=== PATIENT | female | born 1940 | race Caucasian/White ===

== ENCOUNTER 2016-10-05 06:13 | Inpatient (IN) | payer MEDICARE, OTHER ==
[2016-10-05] VITALS (15 sets, daily range): BP systolic 99–148; BP diastolic 62–73; PULSE 60–75; RESP 16–20; TEMP 96.2–98; O2SAT 87–99
[~2016-10-05] VITALS: Ht 157.5 cm; Wt 44.1 kg
[~2016-10-05 06:13] MED LIST: ALPR.25 PO; ATEN-100 PO; PACE200T4 PO; ZOFR4TAB3 SL
[2016-10-05] MEDS ORDERED: AMIO200T PO (06:18)
[2016-10-05] MEDS ORDERED: HEPARIN-NS/PF INJ 500 ML ONE (06:18)
[2016-10-05] MEDS ORDERED: HEPARIN SODIUM - IV 10,000 UNITS/10 ML VIAL ONE ×2 (06:20→06:46)
[2016-10-05] MEDS ORDERED: SODIUM CHLOR 0.9% 1000 ML INJ 1,000 ML IV ONE (06:21)
[2016-10-05] MEDS ORDERED: ASPIRIN 81 MG CHEW TAB PO STA (06:21)
[2016-10-05] MEDS ORDERED: HEPARIN SODIUM - IV 10,000 UNITS/10 ML VIAL IV STA (06:21)
[2016-10-05] MEDS ORDERED: NITROGLYCERIN 0.4 MG SL 25 TABS/BTL SL STA (06:21)
[2016-10-05] MEDS ORDERED: SODIUM CHLORIDE 0.9% FLUSH 10 ML FLUSH IVF PRN (06:30)
[2016-10-05] MEDS ORDERED: NITROGLYCERIN-DEXTROSE INJ 250 ML IV SCH (06:30)
[2016-10-05 06:34] LABS: AUTOMATED NEUTROPHIL # 4.4 TH/MM3 (1.8-7.7); BASOPHIL # 0.1 TH/MM3 (0-0.2); BASOPHIL % 1.1 % (0.0-2.0); EOSINOPHIL # 0.4 TH/MM3 (0-0.4); EOSINOPHIL % 6.3 % (0.0-4.0); HEMATOCRIT 32.6 % (35.0-46.0); HEMO FLAGS DIFF FINAL; LYMPH % 18.5 % (9.0-44.0); LYMPHOCYTE # 1.2 TH/MM3 (1.0-4.8); MEAN CELL VOLUME 85.5 FL (80.0-100.0); MEAN CORPUSCULAR HEMOGLOBIN 27.6 PG (27.0-34.0); MEAN CORPUSCULAR HGB CONC 32.3 % (32.0-36.0); MONO % 9.8 % (0.0-8.0); NEUT % 64.3 % (16.0-70.0); PLATELET COUNT 282 TH/MM3 (150-450); RED BLOOD COUNT 3.81 MIL/MM3 (4.00-5.30); RED CELL DISTRIBUTION WIDTH 14.4 % (11.6-17.2); WHITE BLOOD COUNT 6.8 TH/MM3 (4.0-11.0)
[2016-10-05 06:36] LABS: I-STAT POTASSIUM 4.6 MMOL/L (3.5-4.9)
[2016-10-05 06:46] LABS: APTT (PATIENT) 22.3 SEC (24.3-30.1); PROTHROMBIN TIME - PATIENT 11.2 SEC (9.8-11.6)
[2016-10-05] MEDS ORDERED: NITROGLYCERIN INJ 5 ML ONE (06:46)
[2016-10-05] MEDS ORDERED: MIDAZOLAM HCL 2 MG/2 ML VIAL ONE (06:46)
[2016-10-05 06:48] LABS: MAGNESIUM 2.1 MG/DL (1.5-2.5)
--- NOTE | 2016-10-05 07:15 | PD ---
HPI Chief Complaint: STEMI Alert Time Seen by Provider: 06:21 Travel History International Travel<30 days: No Contact w/Intl Traveler<30days: No Traveled to known affect area: No History of Present Illness HPI The patient is a 76 year old female who presents to the [facility] emergency department with a history of chest pressure that began approximately one hour prior to arrival. The patient reports that she was up and eating breakfast drinking her coffee when she had a sensation of indigestion and chest pressure. The patient reports the chest pressure continued. She reports having generalized weakness, however no shortness of breath, diaphoresis, nausea or vomiting. The patient denies having any prior history of coronary artery disease or myocardial infarction. She reports that she has a long- standing history of atrial fibrillation and hyperlipidemia. She is on amiodarone. She reports that she took her amiodarone and atorvastatin earlier today. Upon ambulance services arrival the patient was noted to have a 5 out of 10 chest pain reported. The patient was placed on a monitor, ECG was done that showed an ST segment elevation DE. The patient was called as a STEMI alert prior to arrival. The patient was given sublingual nitroglycerin 3, aspirin 162 mg by mouth 1. The patient on arrival reports that her chest pain is improved to a 4 out of 10 in severity. The patient denies any recent fevers, cough, congestion, neck pain,abdominal pain, vomiting, diarrhea, urinary symptoms, or neurologic symptoms. PFSH Past Medical History Narrative Medical The patient's past medical history is significant for hyperlipidemia, hypertension, atrial fibrillation Immunizations Current: Yes Tetanus Vaccination: Unknown Influenza Vaccination: No Menopausal: Yes Past Surgical History Narrative Surgical The patient's past surgical history is significant for lobectomy related to a nodule that was benign. Social History Alcohol Use: No Tobacco Use: No Substance Use: No Allergies-Medications (Allergen,Severity, Reaction): Coded Allergies: Codeine (Verified Allergy, Mild, Itching, 10/05/16) Penicillin (Verified Allergy, Mild, Itching, 10/05/16) Reported Meds & Prescriptions Reported Meds & Active Scripts Active Reported Amiodarone (Amiodarone HCl) 200 Mg Tab 200 Mg PO DAILY Review of Systems Except as stated in HPI: all other systems reviewed are Neg General / Constitutional: No: Fever Eyes: No: Visual changes HENT: No: Headaches Cardiovascular: Positive: Chest Pain or Discomfort, No: Dyspnea on exertion Respiratory: No: Shortness of Breath Gastrointestinal: No: Abdominal Pain Genitourinary: No: Dysuria Musculoskeletal: No: Pain Skin: No Rash Neurologic: No: Weakness Psychiatric: No: Depression Endocrine: No: Polydipsia Hematologic/Lymphatic: No: Easy Bruising Physical Exam Narrative General: The patient is a well-developed well-nourished female in no acute distress. Head and Neck exam: Head is normocephalic atraumatic. Eyes: EOMI, pupils are equal round and reactive to light. Nose: Midline septum with pink mucous membranes Mouth: Dentition unremarkable. Moist mucus membranes. Posterior oropharynx is not erythematous. No tonsillar hypertrophy. Uvula midline. Airway patent. Neck: No palpable lymphadenopathy. No nuchal rigidity. No thyromegaly. Cardiovascular: Regular rate and rhythm without murmurs, gallops, or rubs. No pulse deficit to the extremities. Lungs: Clear to auscultation bilaterally. No wheezes, rhonchi, or rales. Abdomen: Soft, without tenderness to palpation in all 4 quadrants of the abdomen. No guarding, rebound, or rigidity. Normal bowel sounds are audible. Extremities: No clubbing, cyanosis, or edema. 2+ pulses in all 4 extremities. No calf tenderness on palpation. Back: No spinous process tenderness to palpation. No costovertebral angle tenderness to palpation. Neurologic Exam: Grossly nonfocal. Skin Exam: No rash noted. Intact skin that is warm and dry. Data Data Last Documented VS Vital Signs Date Time Temp Pulse Resp B/P Pulse Ox O2 Delivery O2 Flow Rate FiO2 10/05/16 06:28 16 10/05/16 06:28 98 Nasal Cannula 2 10/05/16 06:20 61 125/66 10/05/16 06:19 97.4 Orders Heparin-Ns/Pf Inj (Heparin-Ns/Pf Inj) (10/05/16 06:18) Heparin Inj (Heparin Inj) (10/05/16 06:20) Troponin I (10/05/16 06:21) Ckmb (Isoenzyme) Profile (10/05/16 06:21) Complete Blood Count With Diff (10/05/16 06:21) I-Stat Profile (10/05/16 06:21) I-Stat Creatinine (10/05/16 06:21) Calcium (10/05/16 06:21) Magnesium (Mg) (10/05/16 06:21) Prothrombin Time / Inr (Pt) (10/05/16 06:21) Act Partial Throm Time (Ptt) (10/05/16 06:21) B-Type Natriuretic Peptide (10/05/16 06:21) Chest, Single Ap (10/05/16 06:21) Electrocardiogram (10/05/16 06:21) Oxygen Administration (10/05/16 06:21) Iv Access Insert/Monitor (10/05/16 06:21) Oximetry (10/05/16 06:21) Sodium Chlor 0.9% 1000 Ml Inj (Ns 1000 M (10/05/16 06:21) Sodium Chloride 0.9% Flush (Ns Flush) (10/05/16 06:30) Nitroglycerin Sl (Nitrostat Sl) (10/05/16 06:21) Nitroglycerin-Dextrose Inj (Nitroglyceri (10/05/16 06:30) Heparin Inj (Heparin Inj) (10/05/16 06:21) Aspirin Chew (Aspirin Chew) (10/05/16 06:21) Midazolam Inj (Versed Inj) (10/05/16 06:46) Heparin Inj (Heparin Inj) (10/05/16 06:46) Nitroglycerin Inj (Nitroglycerin Inj) (10/05/16 06:46) Labs Laboratory Tests Test 10/05/16 06:20 White Blood Count 6.8 TH/MM3 Red Blood Count 3.81 MIL/MM3 Hemoglobin 10.5 GM/DL Bedside Hemoglobin 11.2 G/DL Hematocrit 32.6 % Bedside Hematocrit 33.0 % Mean Corpuscular Volume 85.5 FL Mean Corpuscular Hemoglobin 27.6 PG Mean Corpuscular Hemoglobin 32.3 % Concent Red Cell Distribution Width 14.4 % Platelet Count 282 TH/MM3 Mean Platelet Volume 8.0 FL Neutrophils (%) (Auto) 64.3 % Lymphocytes (%) (Auto) 18.5 % Monocytes (%) (Auto) 9.8 % Eosinophils (%) (Auto) 6.3 % Basophils (%) (Auto) 1.1 % Neutrophils # (Auto) 4.4 TH/MM3 Lymphocytes # (Auto) 1.2 TH/MM3 Monocytes # (Auto) 0.7 TH/MM3 Eosinophils # (Auto) 0.4 TH/MM3 Basophils # (Auto) 0.1 TH/MM3 CBC Comment DIFF FINAL Differential Comment Prothrombin Time 11.2 SEC Prothromb Time International 1.0 RATIO Ratio Activated Partial 22.3 SEC Thromboplast Time Bedside Sodium 140 MMOL/L Bedside Potassium 4.6 MMOL/L Bedside Chloride 104 MMOL/L Bedside Blood Urea Nitrogen 13 MG/DL Bedside Creatinine 0.8 MG/DL Bedside Glucose 129 MG/DL Calcium Level 8.1 MG/DL Magnesium Level 2.1 MG/DL Total Creatine Kinase 92 U/L Troponin I 0.31 NG/ML B-Type Natriuretic Peptide 308 PG/ML MDM Medical Decision Making Medical Screen Exam Complete: Yes Emergency Medical Condition: Yes Medical Record Reviewed: Yes Differential Diagnosis Acute myocardial infarction, versus pericarditis Narrative Course During the course of the patients emergency department visit, the patients history, examination, and differential diagnosis were reviewed with the patient. The patient had IV access obtained and blood work sent for analysis. An i-STAT with creatinine was ordered. Chest x-ray was ordered. The media specialist on-call for STEMI alert was called. Spoke to Dr. Chi regarding this patient's case. He did agree to take the patient to the cardiac catheterization lab. The patient was provided an additional aspirin 162 mg by mouth. The patient was given heparin 3000 units 1. The patients laboratory studies were reviewed and remarkable for a white count of 6.8, hemoglobin 10.5, platelets 282 with a normal differential. BMP is remarkable for a glucose of 129, calcium 8.1, troponin I 0.31, CPK 92, BNP is 308, PT 11.2, PTT 22.3. Personally transported patient to the cardiac catheterization lab and transported with the nursing staff. I arrived at 6:33 AM and the media specialist arrived to [facility] at approximately 6:58 AM. Care was transferred over to Dr. Chi after discussing the patient further with him. The patients results were discussed with the patient, including the plan of care. I explained that further testing and/ or monitoring is indicated based on the patients history, examination, and/ or laboratory findings. Therefore, I recommended admission for additional evaluation. The patient expressed understanding and was agreeable with this plan. The patient was admitted to the hospital in guarded condition and sent to a bed under the care of the media specialist. Critical Care Narrative Aggregate critical care time was 45 minutes. Time to perform other separately billable procedures was not included in the critical care time. My time did not include minutes spent treating any other patients simultaneously or on activities that did not directly contribute to the patient's treatment. The services I provided to this patient were to treat and/or prevent clinically significant deterioration that could result in: Cardiovascular collapse, cardiac arrhythmia, respiratory failure I provided critical care services requiring my management, as noted below: Chart data review, documentation time, medication orders and management, vital sign assessments/reviewing monitor data, ordering and reviewing lab tests, ordering and interpreting/reviewing x-rays and diagnostic studies, care of the patient and discussion of the patient with the admitting physicians. Diagnosis Primary Impression: STEMI (ST elevation myocardial infarction) Qualified Code: I21.3 - ST elevation myocardial infarction (STEMI), unspecified artery Admitting Information Admitting Physician Requests: Diamond Castillo MD Oct 05, 2016 07:15
[2016-10-05] MEDS ORDERED: NITROGLYCERIN 400 MCG/SPRAY 4.9 GM BOTTLE SL ONE (07:19)
[2016-10-05] MEDS ORDERED: CLOPIDOGREL 300 MG TAB ONE (07:20)
[2016-10-05] MEDS ORDERED: MORPHINE SULFATE 8 MG/ML INJ ONE (07:23)
[2016-10-05] MEDS ORDERED: IOHEXOL 350 MG/ML 100 ML BTL (for Cath Lab) OTHER ONE (07:25)
[2016-10-05] MEDS ORDERED: ASPIRIN 81 MG CHEW TAB ONE (07:28)
--- NOTE | 2016-10-05 07:54 | MH ---
cc: CITLALY MCGREGOR DATE OF ADMISSION 10/05/2016 HISTORY This is a 76-year-old woman who presents to the hospital with chest discomfort. She has a history of paroxysmal atrial fibrillation treated several years ago with no recurrence and hypertension. She was having breakfast this morning when she began having substernal chest tightness. This persisted for approximately an hour or so and she finally decided to call the ambulance who brought her to the emergency department. In the emergency department, an EKG showed ST-segment elevation across the anterior precordium, as well as in the inferior leads. We have been asked to see her for an acute anterior ME. No prior history of chest tightness or CAD has been present. MEDICATIONS Her medications at home have included: 1. Amiodarone 2. Atenolol 3. Occasional Xanax. REVIEW OF SYSTEMS She is currently complaining of chest discomfort of 5/10, but is resting comfortably with no shortness of breath. PAST MEDICAL HISTORY Otherwise as above. ALLERGIES CODEINE SOCIAL HISTORY The patient does not smoke. PHYSICAL EXAM She is awake and alert. VITAL SIGNS: Blood pressure is 120/70, pulse is 80 and regular. NECK: There is no neck vein distension. LUNGS: Clear. CARDIOVASCULAR: Exam is essentially normal. ASSESSMENT The patient has an acute anterior ME with inferior extension. PLAN We will plan emergency catheterization for further evaluation. MD ALAN Gleason/ROBYN /7:40 AM :51 AM
--- NOTE | 2016-10-05 08:05 | MA ---
cc: CITLALY MCGREGOR DATE 10/05/2016 PROCEDURE PERFORMED Catheterization PROCEDURAL STATEMENT The patient was prepped and draped in the usual fashion. A six sheath was inserted percutaneously in the right femoral artery. Coronary angiography was done with Cristiana preformed catheters and left ventriculography was done with a pigtail catheter. RESULTS Aortic pressure was 100/60. Left ventricular end-diastolic pressure was 28. No gradient was present across the aortic valve. CORONARY ARTERIOGRAPHY The right coronary artery was anatomically dominant with some mild luminal irregularities in its proximal portion compromising the lumen by approximately 20%. No other significant stenoses were seen. The left main coronary artery was normal. The left anterior descending artery was totally occluded just after the takeoff of the left main and first septal manager cath lab. No collaterals were noted. The left circumflex artery arose from the left main. It gave off an obtuse marginal branch was patent throughout its course. An ACT was done as the patient was given heparin in the emergency department with a value of 178. An additional 1000 units was given with the second value of 243. An XB LAD 3.5 guide was used and a [employer] wire was negotiated across the total occlusion into the distal LAD. Primary stenting was accomplished with a 2.5 x 12-mm drug-eluting stent, post dilating to 14 atmospheres. This resulted in a good cosmetic result. MICHAEL-III flow was present. Left ventriculography was done revealing severe hypokinesis of the entire anterior and apical zaman extending into the inferior wall. Estimated ejection fraction was 25-30%. CONCLUSION The patient demonstrates total occlusion of the LAD which shows a rather large vascular bed. Successful angioplasty was done. Medical management will be intensified. MD ALAN Gleason/ROBYN /7:42 AM 7:55 AM
[2016-10-05] MEDS ORDERED: LIDOCAINE 2% JELLY 30 ML TUBE TOP PRN (08:45)
[2016-10-05] MEDS ORDERED: ATROPINE SULFATE 1 MG/ML VIAL IV PRN (08:45)
[2016-10-05] MEDS ORDERED: SODIUM CHLORIDE 0.9% FLUSH 10 ML FLUSH IV FLUSH PRN (08:45)
[2016-10-05] MEDS ORDERED: LIDOCAINE HCL 1% 50 ML VIAL INFIL PRN (08:45)
[2016-10-05] MEDS ORDERED: MISC INFORMATION XX ONE (08:45)
[2016-10-05] MEDS ORDERED: METOCLOPRAMIDE HCL 10 MG/2 ML VIAL IV PRN (08:45)
[2016-10-05] MEDS ORDERED: ONDANSETRON HCL 4 MG/2 ML VIAL IV PRN (08:45)
[2016-10-05] MEDS ORDERED: SODIUM CHLOR 0.9% 250 ML INJ 250 ML IV PRN (08:45)
[2016-10-05] MEDS ORDERED: LORazepam 2 MG/ML VIAL IV PRN (08:45)
[2016-10-05] MEDS ORDERED: oxyCODONE/ACETAMINOPHEN 5 MG/325 MG TAB PO PRN (08:45)
[2016-10-05] MEDS: SODIUM CHLORIDE 0.9% FLUSH 10 ML FLUSH IV FLUSH SCH ×2 (09:00→20:07)
[2016-10-05] MEDS ORDERED: ASPIRIN 81 MG CHEW TAB PO SCH (09:00)
--- NOTE | 2016-10-05 09:05 | EKG ---
Date Performed: 10/05/2016 Time Performed: 06:19:57 PTAGE: 76 years EKG: Sinus rhythm WITH OCCASIONAL VENTRICULAR PREMATURE COMPLEXES MARKED ST ELEVATION, CONSIDER INFERIOR INJURY MARKED ST ELEVATION, CONSIDER ANTEROLATERAL INJURY ACUTE LA NO PREVIOUS TRACING DOCTOR: Tanmay Ny Interpretating Date/Time 10/05/2016 09:03:10
[2016-10-05] MEDS ORDERED: BACITRACIN OINT 0.9 GM PKT TOP ONE (09:30)
[2016-10-05] MEDS: traMADol/ACETAMINOPHEN 37.5/325 1 TAB PO PRN ×2 (10:01→21:03)
--- NOTE | 2016-10-05 13:04 | RADRPT ---
EXAM DATE/TIME: 10/05/2016 06:21 [facility] COMPARISON: No previous studies available for comparison. INDICATIONS : Chest pain. Post STEMI alert. MEDICAL HISTORY : Cardiovascular disease. SURGICAL HISTORY : Cardiac cath. ENCOUNTER: Subsequent ACUITY: 1 day PAIN SCORE: 5/10 LOCATION: Bilateral chest FINDINGS: Study is abnormal. I have no prior films for comparison. There are consolidative changes in the right upper lobe. Patchy air space disease is seen in the lef t lung with mild interstitial edema. Heart and pulmonary vascularity are normal. CONCLUSION: 1. Markedly abnormal chest. 2. I have no prior studies for comparison. Farhad Steve MD FACR on October 05, 2016 at 12:59 Board Certified Radiologist. This report was verified electronically.
[2016-10-05] MEDS ORDERED: FUROSEMIDE 40 MG/4 ML VIAL ONE (13:41)
[2016-10-05] MEDS ORDERED: FUROSEMIDE 40 MG/4 ML VIAL IV PUSH ONE (15:00)
[2016-10-05] MEDS ORDERED: POTASSIUM CHLORIDE 10 MEQ CAP PO SCH (16:00)
[2016-10-05] MEDS ORDERED: FUROSEMIDE 40 MG/4 ML VIAL IV PUSH SCH (18:00)
[2016-10-05] MEDS: ATORVASTATIN 10 MG TAB PO SCH (20:07)
[2016-10-05] MEDS ORDERED: NITROGLYCERIN 0.4 MG SL 25 TABS/BTL SL ONE (20:27)
[2016-10-05] MEDS ORDERED: POTASSIUM CHLORIDE 10 MEQ CONTROLLED RELEASE TAB PO SCH (21:00)
[2016-10-06] VITALS (19 sets, daily range): BP systolic 77–106; BP diastolic 37–58; PULSE 63–71; RESP 14–18; TEMP 97.4–98; O2SAT 95–99
[2016-10-06 04:45] LABS: AUTOMATED NEUTROPHIL # 19.5 TH/MM3 (1.8-7.7); BASOPHIL % 0.2 % (0.0-2.0); HEMATOCRIT 34.1 % (35.0-46.0); HEMO FLAGS DIFF FINAL; LYMPHOCYTE # 0.4 TH/MM3 (1.0-4.8); MEAN CORPUSCULAR HEMOGLOBIN 27.3 PG (27.0-34.0); MEAN CORPUSCULAR HGB CONC 31.7 % (32.0-36.0); MONO % 8.9 % (0.0-8.0); NEUT % 88.9 % (16.0-70.0); PLATELET COUNT 270 TH/MM3 (150-450); RED BLOOD COUNT 3.97 MIL/MM3 (4.00-5.30); RED CELL DISTRIBUTION WIDTH 14.7 % (11.6-17.2); WHITE BLOOD COUNT 21.9 TH/MM3 (4.0-11.0)
--- NOTE | 2016-10-06 05:19 | RADRPT ---
EXAM DATE/TIME: 10/06/2016 04:27 [facility] COMPARISON: CHEST SINGLE AP, October 05, 2016, 6:21. INDICATIONS : Shortness of breath, possible pulmonary disease. MEDICAL HISTORY : Cardiovascular disease. SURGICAL HISTORY : Cardiac cath ENCOUNTER: Subsequent ACUITY: 2 days PAIN SCORE: 3/10 LOCATION: Bilateral chest FINDINGS: A single portable frontal view of the chest shows no significant interval change given the difference s in technique. The lungs are hyperaerated. Dense consolidation within the right lung apex with volum e loss of the right upper lobe and elevation of the right hilum. Patchy intra-alveolar infiltrates se en throughout the left lung most concentrated within the retrocardiac aspects of the left lung base. No discrete effusions. Heart is mildly enlarged. Bony structures are unremarkable. CONCLUSION: Unchanged exam as detailed above. Sampson Marvin Jr., MD on October 06, 2016 at 5:16 Board Certified Radiologist. This report was verified electronically.
[2016-10-06 05:41] LABS: BICARBONATE 22.6 MEQ/L (21.0-32.0); POTASSIUM 4.4 MEQ/L (3.5-5.1)
--- NOTE | 2016-10-06 07:25 | PD.CARD.PN ---
Subjective Subjective Remarks Feels a bit better. Complains of mild pleuritic pain especially with swallowing or breaths. On nasal cannula O2 Objective Vital Signs / I&O Vital Signs Date Time Temp Pulse Resp B/P Pulse Ox O2 Delivery O2 Flow Rate FiO2 10/06/16 04:00 65 16 89/52 98 10/06/16 04:00 65 10/06/16 00:00 97.7 63 16 77/37 99 10/06/16 00:00 63 10/05/16 20:00 96 Non-Rebreather 10/05/16 20:00 97.6 68 20 112/64 97 10/05/16 20:00 68 10/05/16 15:06 75 10/05/16 15:06 98.0 64 20 124/63 94 10/05/16 11:07 98.0 64 20 124/63 94 10/05/16 11:01 18 10/05/16 11:00 64 10/05/16 09:50 99 Nasal Cannula 4.00 10/05/16 09:00 60 10/05/16 08:45 87 Non-Rebreather 15.00 10/05/16 08:05 96.2 60 20 126/66 92 137/66 I/O 10/05/16 10/05/16 10/05/16 10/06/16 10/06/16 10/06/16 07:00 15:00 23:00 07:00 15:00 23:00 Intake Total 480 ml 240 ml Output Total 1150 ml 900 ml Balance -670 ml -660 ml Intake Oral 480 ml 240 ml Output Urine Total 1150 ml 900 ml # Bowel Movements 0 0 Physical Exam Lungs essentially clear RRR no rub Laboratory Laboratory Tests Test 10/06/16 04:24 White Blood Count 21.9 TH/MM3 Red Blood Count 3.97 MIL/MM3 Hemoglobin 10.8 GM/DL Hematocrit 34.1 % Mean Corpuscular Volume 86.0 FL Mean Corpuscular Hemoglobin 27.3 PG Mean Corpuscular Hemoglobin 31.7 % Concent Red Cell Distribution Width 14.7 % Platelet Count 270 TH/MM3 Mean Platelet Volume 8.9 FL Neutrophils (%) (Auto) 88.9 % Lymphocytes (%) (Auto) 2.0 % Monocytes (%) (Auto) 8.9 % Eosinophils (%) (Auto) 0.0 % Basophils (%) (Auto) 0.2 % Neutrophils # (Auto) 19.5 TH/MM3 Lymphocytes # (Auto) 0.4 TH/MM3 Monocytes # (Auto) 2.0 TH/MM3 Eosinophils # (Auto) 0.0 TH/MM3 Basophils # (Auto) 0.0 TH/MM3 CBC Comment DIFF FINAL Differential Comment Sodium Level 141 MEQ/L Potassium Level 4.4 MEQ/L Chloride Level 108 MEQ/L Carbon Dioxide Level 22.6 MEQ/L Anion Gap 10 MEQ/L Blood Urea Nitrogen 19 MG/DL Creatinine 1.01 MG/DL Estimat Glomerular Filtration 54 ML/MIN Rate Random Glucose 145 MG/DL Calcium Level 8.4 MG/DL Total Creatine Kinase 3353 U/L Creatine Kinase MB 238.0 NG/ML Creatine Kinase MB % 7.1 % Triglycerides Level 66 MG/DL Cholesterol Level 171 MG/DL LDL Cholesterol 55 MG/DL HDL Cholesterol 103.0 MG/DL Cholesterol/HDL Ratio 1.66 RATIO Assessment and Plan Assessment and Plan S/P anterior [place]. Total CK 3300. Will decrease lasix to once daily. Hold beta blockers/VERNA due to low BP Tl Chi MD Oct 06, 2016 07:25
[2016-10-06] MEDS: ASPIRIN 81 MG CHEW TAB PO SCH (09:00)
[2016-10-06] MEDS: CLOPIDOGREL 75 MG TAB PO SCH (10:10)
[2016-10-06] MEDS: FUROSEMIDE 40 MG TAB PO SCH (10:10)
[2016-10-06] MEDS: SODIUM CHLORIDE 0.9% FLUSH 10 ML FLUSH IV FLUSH SCH ×2 (10:10→22:35)
[2016-10-06] MEDS: POTASSIUM CHLORIDE 10 MEQ CONTROLLED RELEASE TAB PO SCH (10:14)
[2016-10-06] MEDS: traMADol/ACETAMINOPHEN 37.5/325 1 TAB PO PRN (10:14)
--- NOTE | 2016-10-06 10:19 | EKG ---
Date Performed: 10/06/2016 Time Performed: 05:59:36 PTAGE: 76 years EKG: Sinus rhythm Left axis deviation Extensive infarct - age undetermined Abnormal ECG PREVIOUS TRACING : 10/05/2016 06.19 Compared to the previous tracing ST elevation has significa ntly improved DOCTOR: Irineo Fischer Interpretating Date/Time 10/06/2016 10:18:46
[2016-10-06] MEDS: ATORVASTATIN 10 MG TAB PO SCH (22:35)
[2016-10-07] VITALS (23 sets, daily range): BP systolic 98–134; BP diastolic 62–71; PULSE 70–89; RESP 16–18; TEMP 97.5–98.8; O2SAT 95–98
[2016-10-07 07:10] LABS: BICARBONATE 25.9 MEQ/L (21.0-32.0); POTASSIUM 3.9 MEQ/L (3.5-5.1)
--- NOTE | 2016-10-07 09:11 | PD.CARD.PN ---
Subjective Subjective Remarks denies chest pain or shortness of breath (Jose Alberto Desir) Objective Vital Signs / I&O Vital Signs Date Time Temp Pulse Resp B/P Pulse Ox O2 Delivery O2 Flow Rate FiO2 10/07/16 08:10 98 Nasal Cannula 4.00 10/07/16 07:00 98.8 89 18 134/71 95 10/07/16 04:20 97.9 73 16 126/65 96 10/07/16 03:00 74 10/07/16 02:00 74 10/07/16 01:00 76 10/07/16 00:00 78 10/06/16 23:38 97.6 71 16 106/58 97 10/06/16 23:00 70 10/06/16 22:00 70 10/06/16 21:00 97.6 70 16 97/55 96 10/06/16 21:00 68 10/06/16 20:00 70 10/06/16 19:00 66 10/06/16 18:00 67 10/06/16 17:00 67 10/06/16 16:00 65 10/06/16 15:02 97.4 67 18 89/51 98 10/06/16 15:00 67 10/06/16 14:00 65 10/06/16 13:00 65 10/06/16 12:00 65 10/06/16 11:05 97.9 68 14 85/48 97 10/06/16 11:05 68 I/O 10/06/16 10/06/16 10/06/16 10/07/16 10/07/16 10/07/16 07:00 15:00 23:00 07:00 15:00 23:00 Intake Total 240 ml 800 ml 240 ml 240 ml Output Total 900 ml 350 ml 1500 ml 350 ml Balance -660 ml 450 ml -1260 ml -110 ml Intake Oral 240 ml 750 ml 240 ml 240 ml IV Total 50 ml 0 ml Output Urine Total 900 ml 350 ml 1500 ml 350 ml # Bowel Movements 0 0 0 Physical Exam GENERAL: Well-nourished, well-developed patient in no apparent distress. NECK: No JVD. No carotid bruit. CARDIOVASCULAR: Regular rate and rhythm. S1/S2 no murmur, rub, or gallop. RESPIRATORY: No accessory muscle use. Clear to auscultation. Breath sounds equal bilaterally. GASTROINTESTINAL: Abdomen soft, non-tender, nondistended. MUSCULOSKELETAL: Extremities without clubbing, cyanosis, or edema. Laboratory Laboratory Tests Test 10/07/16 06:26 Sodium Level 139 MEQ/L Potassium Level 3.9 MEQ/L Chloride Level 105 MEQ/L Carbon Dioxide Level 25.9 MEQ/L Anion Gap 8 MEQ/L Blood Urea Nitrogen 25 MG/DL Creatinine 0.89 MG/DL Estimat Glomerular Filtration 62 ML/MIN Rate Random Glucose 112 MG/DL Calcium Level 9.1 MG/DL (Jose Alberto Desir) Assessment and Plan Problem List: (1) STEMI (ST elevation myocardial infarction) Assessment and Plan Continue ASA and Plavix. consider low dose VERNA-I. Discharge planning (Jose Alberto Desir) Assessment and Plan PCI LAD SHYAM ischemic cardiomyopathy EF 25% at time of cath check 2d echo - re: any improvement in EF. start low dose BB and VERNA as BP allows cont asa plavix and statin ASMITA orozco DC planning for tomorrow FU with Dr. Chi. (Tanmay Ny MD) Problem Qualifiers (1) STEMI (ST elevation myocardial infarction): Qualified Code: I21.3 - ST elevation myocardial infarction (STEMI), unspecified artery Jose Alberto Desir Oct 07, 2016 09:11 Tanmay Ny MD Oct 07, 2016 13:06
[2016-10-07] MEDS: CLOPIDOGREL 75 MG TAB PO SCH (09:13)
[2016-10-07] MEDS: FUROSEMIDE 40 MG TAB PO SCH (09:13)
[2016-10-07] MEDS: SODIUM CHLORIDE 0.9% FLUSH 10 ML FLUSH IV FLUSH SCH ×2 (09:13→20:55)
[2016-10-07] MEDS: POTASSIUM CHLORIDE 10 MEQ CONTROLLED RELEASE TAB PO SCH (09:13)
[2016-10-07] MEDS: ASPIRIN 81 MG CHEW TAB PO SCH (09:13)
[2016-10-07] MEDS ORDERED: PLAV75TA29 PO (13:14)
[2016-10-07] MEDS ORDERED: POTA-243 PO (13:14)
[2016-10-07] MEDS ORDERED: FURO20TA PO (13:14)
[2016-10-07] MEDS ORDERED: LIPI10TA PO (13:14)
[2016-10-07] MEDS ORDERED: LISI-519 PO (13:14)
[2016-10-07] MEDS ORDERED: CARV3.125 PO (13:14)
[2016-10-07] MEDS ORDERED: Aspirin Chew PO (13:14)
[2016-10-07] MEDS ORDERED: PILL SPLITTER OTHER PRN (13:15)
--- NOTE | 2016-10-07 14:38 | EC ---
Study Study Date:10/07/2016 STUDY CONCLUSIONS SUMMARY - Left ventricle: The cavity size was normal. Wall thickness was normal. Systolic function was severely reduced. The estimated ejection fraction was in the range of 20% to 25%. Hypokinesis of the anterior and apical myocardium. - Tricuspid valve: Mild regurgitation. If LV function is below 40, please consider prescribing an ACEI or ARB or document rationale for non-use. PROCEDURE DATA STUDY STATUS: Elective. Procedure: Transthoracic echocardiography. Image quality was good. Scanning was performed from the parasternal, apical, and subcostal acoustic windows. Study completion: The patient tolerated the procedure well. Transthoracic echocardiography. M-mode, complete 2D, complete spectral Doppler, and color Doppler. Height: Height: 62in. Weight: Weight: 102.8lb. Body mass index: BMI: 18.8kg/m^2. Body surface area: BSA: 1.44m^2. Patient status: Inpatient. CARDIAC ANATOMY LEFT VENTRICLE: The cavity size was normal. Wall thickness was normal. Systolic function was severely reduced. The estimated ejection fraction was in the range of 20% to 25%. Regional wall motion abnormalities: Hypokinesis of the anterior and apical myocardium. AORTIC VALVE: Trileaflet; normal thickness leaflets. Doppler: Transvalvular velocity was within the normal range. There was no stenosis. No regurgitation. AORTA: Aortic root: The aortic root was normal in size. MITRAL VALVE: Structurally normal valve. Doppler: Transvalvular velocity was within the normal range. There was no evidence for stenosis. No regurgitation. LEFT ATRIUM: The atrium was normal in size. RIGHT VENTRICLE: The cavity size was normal. Wall thickness was normal. PULMONIC VALVE: Doppler: Transvalvular velocity was within the normal range. There was no evidence for stenosis. No regurgitation. TRICUSPID VALVE: Structurally normal valve. Doppler: Transvalvular velocity was within the normal range. Mild regurgitation. Peak gradient: 30mm Hg (D). PULMONARY ARTERY: The main pulmonary artery was normal-sized. Systolic pressure was within the normal range. RIGHT ATRIUM: The atrium was normal in size. PERICARDIUM: There was no pericardial effusion. SYSTEMIC VEINS: Inferior vena cava: The vessel was normal in size. Patient weight: 102.8lb _Ejection fraction:_ 65-75% _Fractional shortening:_ 32% up to 5Kg 5-11.5Kg 11.6-22.9Kg 23-45Kg 45-57Kg Aortic Root 7-13 <17 13-22 17-27 17-27 LA diam 6-13 <23 24-38 33-47 37-40 RVID 10-17 7-15 7-15 7-18 8-17 LVIDd 12-22 <32 24-38 33-47 37-40 LVPW 2-4 3-6 5-7 6-8 7-8 IVS 2-4 3-6 5-7 6-8 7-8 BASIC MEASUREMENTS ADULT Normal Left ventricle LV internal dimension, ED, chordal level, *42.3 mm 43-52 PLAX LV internal dimension, ES, chordal level, *38.7 mm 23-38 PLAX Fractional shortening, chordal level, PLAX *9 % >29 LV posterior wall thickness, ED 9.69 mm IVS/LVPW ratio, ED 1.03 <1.3 Volume, ED, MOD, 1-plane 104 ml Volume, ES, MOD, 1-plane 75 ml Ejection fraction, MOD, 1-plane 28 % Stroke volume, MOD, 1-plane 29 ml Volume index, ED, MOD, 1-plane 72 ml/m^2 Volume index, ES, MOD, 1-plane 52 ml/m^2 Stroke index, MOD, 1-plane 20.1 ml/m^2 Ventricular septum Septal thickness, ED 9.95 mm Aortic valve Leaflet separation 16 mm 15-26 Left atrium Anterior-posterior dimension 27 mm Anterior-posterior dimension index 1.88 cm/m^2 <2.2 BASIC MEASUREMENTS ADULT Normal Aortic valve Leaflet separation 16 mm 15-26 Aorta Root diameter, ED 33 mm 20-37 Left atrium Anterior-posterior dimension, ES 19 mm 19-40 Anterior-posterior dimension index, ES 1.32 cm/m^2 <2.2 LA/aortic root ratio 0.58 DOPPLER MEASUREMENTS ADULT Normal Main pulmonary artery Pressure, S 26 mm Hg =30 Aortic valve Peak velocity, S 114 cm/s Regurgitant velocity, ED 425 cm/s Regurgitant deceleration 3460 cm/s^2 Regurgitant pressure half-time 302 ms Regurgitant gradient, ED 72 mm Hg Tricuspid valve Peak gradient, D 30 mm Hg Maximal inflow velocity 276 cm/s Regurgitant peak velocity 221 cm/s Peak RV-RA gradient, S 20 mm Hg Maximal regurgitant velocity 221 cm/s Systemic veins Estimated CVP 10 mm Hg Right ventricle RV pressure, S *30 mm Hg <30 Pulmonic valve Peak velocity, S 103 cm/s Acceleration time 408 ms LEGEND: Mean values are shown as u=mean value. Asterisk (*) r[place] values outside specified normal range. Prepared and signed by Alberto Villagomez [id number]
[2016-10-07] MEDS: traMADol/ACETAMINOPHEN 37.5/325 1 TAB PO PRN (20:54)
[2016-10-07] MEDS: CARVEDILOL 3.125 MG TAB PO SCH (20:55)
[2016-10-07] MEDS: ATORVASTATIN 10 MG TAB PO SCH (20:55)
[2016-10-08] VITALS (30 sets, daily range): BP systolic 89–114; BP diastolic 50–70; PULSE 68–92; RESP 16–18; TEMP 97.2–98.6; O2SAT 93–98
[2016-10-08 06:11] LABS: HEMATOCRIT 31.7 % (35.0-46.0); MEAN CELL VOLUME 85.9 FL (80.0-100.0); MEAN CORPUSCULAR HEMOGLOBIN 27.3 PG (27.0-34.0); MEAN CORPUSCULAR HGB CONC 31.8 % (32.0-36.0); PLATELET COUNT 180 TH/MM3 (150-450); RED CELL DISTRIBUTION WIDTH 14.7 % (11.6-17.2); REVIEW FLAG FINAL
[2016-10-08 06:26] LABS: BICARBONATE 28.8 MEQ/L (21.0-32.0); POTASSIUM 3.3 MEQ/L (3.5-5.1)
--- NOTE | 2016-10-08 07:48 | PD.CARD.PN ---
Subjective Subjective Remarks no complaints Objective Medications Current Medications Medications (Trade) Dose Ordered Sig/Agatha Route Start Time Stop Time Status Last Admin (Xylocaine 2% Jelly) 1 applic UNSCH PRN TOP 10/05/16 08:45 (NS Flush) 2 ml UNSCH PRN IV FLUSH 10/05/16 08:45 (NS Flush) 2 ml BID IV FLUSH 10/05/16 09:00 10/07/16 20:55 (Plavix) 75 mg DAILY PO 10/06/16 09:00 10/07/16 09:13 (Atropine Inj) 0.5 mg UNSCH PRN IV 10/05/16 08:45 (Reglan Inj) 10 mg Q4H PRN IV 10/05/16 08:45 (Zofran Inj) 4 mg Q4H PRN IV 10/05/16 08:45 (Lipitor) 10 mg HS PO 10/05/16 21:00 10/07/16 20:55 (Ultracet 37.5-325 Mg) 1 tab Q6H PRN PO 10/05/16 09:00 10/07/16 20:54 (Aspirin Chew) 81 mg DAILY PO 10/06/16 09:00 10/07/16 09:13 (KCl) 10 meq DAILY PO 10/06/16 09:00 10/07/16 09:13 (Lasix) 20 mg DAILY PO 10/08/16 09:00 (Coreg) 3.125 mg Q12HR PO 10/07/16 21:00 10/07/16 20:55 (Prinivil) 2.5 mg DAILY PO 10/08/16 09:00 (Pill Splitter) 1 ea UNSCH PRN OTHER 10/07/16 13:15 Vital Signs / I&O Vital Signs Date Time Temp Pulse Resp B/P Pulse Ox O2 Delivery O2 Flow Rate FiO2 10/08/16 06:25 74 10/08/16 05:06 73 10/08/16 04:00 69 10/08/16 03:50 97.8 72 97/52 98 10/08/16 03:00 69 10/08/16 02:00 75 10/08/16 01:00 88 10/08/16 00:42 98.6 75 89/50 98 10/08/16 00:00 68 10/07/16 23:00 70 10/07/16 22:00 74 10/07/16 21:32 96 Nasal Cannula 4.00 10/07/16 21:00 84 10/07/16 20:00 82 10/07/16 19:00 77 10/07/16 19:00 97.5 84 105/62 97 10/07/16 18:00 78 10/07/16 17:00 89 10/07/16 16:00 89 10/07/16 15:00 98.4 88 18 98/66 96 10/07/16 15:00 84 10/07/16 13:00 89 10/07/16 12:00 79 10/07/16 11:00 85 10/07/16 11:00 98.3 85 18 120/66 96 10/07/16 10:00 84 10/07/16 09:00 82 10/07/16 08:10 98 Nasal Cannula 4.00 10/07/16 08:00 86 I/O 10/07/16 10/07/16 10/07/16 10/08/16 10/08/16 10/08/16 07:00 15:00 23:00 07:00 15:00 23:00 Intake Total 240 ml 480 ml 480 ml Output Total 350 ml 750 ml 600 ml Balance -110 ml -270 ml -120 ml Intake Oral 240 ml 480 ml 480 ml IV Total 0 ml Output Urine Total 350 ml 750 ml 600 ml # Bowel Movements 0 Physical Exam GENERAL: Well-nourished, well-developed patient. SKIN: Warm and dry. HEAD: Normocephalic. EYES: No scleral icterus. No injection or drainage. NECK: Supple, trachea midline. No JVD or lymphadenopathy. CARDIOVASCULAR: Regular rate and rhythm without murmurs, gallops, or rubs. RESPIRATORY: Breath sounds equal bilaterally. No accessory muscle use. GASTROINTESTINAL: Abdomen soft, non-tender, nondistended. EXTREMITIES: No cyanosis, or edema. NEUROLOGICAL: Awake, alert, and oriented x 3. Non-focal. Laboratory Laboratory Tests Test 10/08/16 05:06 White Blood Count 16.0 TH/MM3 Red Blood Count 3.70 MIL/MM3 Hemoglobin 10.1 GM/DL Hematocrit 31.7 % Mean Corpuscular Volume 85.9 FL Mean Corpuscular Hemoglobin 27.3 PG Mean Corpuscular Hemoglobin 31.8 % Concent Red Cell Distribution Width 14.7 % Platelet Count 180 TH/MM3 Mean Platelet Volume 8.6 FL Sodium Level 140 MEQ/L Potassium Level 3.3 MEQ/L Chloride Level 104 MEQ/L Carbon Dioxide Level 28.8 MEQ/L Anion Gap 7 MEQ/L Blood Urea Nitrogen 24 MG/DL Creatinine 0.60 MG/DL Estimat Glomerular Filtration 98 ML/MIN Rate Random Glucose 99 MG/DL Calcium Level 8.9 MG/DL Imaging Last Impressions Chest X-Ray 10/06/16 0600 Signed Impressions: Service Date/Time: , October 06, 2016 04:27 - CONCLUSION: Unchanged exam as detailed above. Sampson Marvin Jr., MD Assessment and Plan Problem List: (1) STEMI (ST elevation myocardial infarction) Assessment and Plan: chest pain free ambulating without difficulty s/p PCI Cont DAPT ASA and Plavix Aggressive medical management for CAD Stable from CV standpoint to d/c home today Problem Qualifiers (1) STEMI (ST elevation myocardial infarction): Qualified Code: I21.3 - ST elevation myocardial infarction (STEMI), unspecified artery Alberto Villagomez MD Oct 08, 2016 07:48
[2016-10-08] MEDS ORDERED: POTASSIUM CHLORIDE 10 MEQ CAP PO ONE (09:00)
--- NOTE | 2016-10-08 10:36 | HHI.PR ---
Subjective Remarks eager for d/c. no cp or sob requires oxygen Objective Vitals heart reg lung cta abd s/nt ext no edema Vital Signs Date Time Temp Pulse Resp B/P Pulse Ox O2 Delivery O2 Flow Rate FiO2 10/08/16 07:51 80 10/08/16 07:51 98.1 80 16 114/70 96 10/08/16 06:25 74 10/08/16 05:06 73 10/08/16 04:00 69 10/08/16 03:50 97.8 72 97/52 98 10/08/16 03:00 69 10/08/16 02:00 75 10/08/16 01:00 88 10/08/16 00:42 98.6 75 89/50 98 10/08/16 00:00 68 10/07/16 23:00 70 10/07/16 22:00 74 10/07/16 21:32 96 Nasal Cannula 4.00 10/07/16 21:00 84 10/07/16 20:00 82 10/07/16 19:00 77 10/07/16 19:00 97.5 84 105/62 97 10/07/16 18:00 78 10/07/16 17:00 89 10/07/16 16:00 89 10/07/16 15:00 98.4 88 18 98/66 96 10/07/16 15:00 84 10/07/16 13:00 89 10/07/16 12:00 79 10/07/16 11:00 85 10/07/16 11:00 98.3 85 18 120/66 96 10/07/16 10/07/16 10/08/16 15:00 23:00 07:00 Intake Total 480 ml 480 ml Output Total 750 ml 600 ml Balance -270 ml -120 ml Intake Oral 480 ml 480 ml Output Urine Total 750 ml 600 ml Result Diagram: 10/08/16 0506 10/08/16 0506 A/P Problem List: (1) STEMI (ST elevation myocardial infarction) Status: Acute Plan: Pt presented with stemi has ischemic cardiomyopathy and ef 20-25% I was asked to assist with d/c home today by cardiology...cardiology has cleared her for d/c. She will need a walk to test for hypoxia and likely need home oxygen. her bb/shanel/statin/asa/plavix,etc have been ordered by her lead etl developer d/c home once oxygen has been arranged after walk test...she can be retested in clinic to see if it can be weaned or stopped. Problem Qualifiers (1) STEMI (ST elevation myocardial infarction): Qualified Code: I21.3 - ST elevation myocardial infarction (STEMI), unspecified artery John Cesar MD Oct 08, 2016 10:36
--- NOTE | 2016-10-08 10:36 | HHI.DCPOC ---
Discharge Care Plan Diagnosis: (1) STEMI (ST elevation myocardial infarction) (2) Ischemic cardiomyopathy Goals to Promote Your Health * To prevent worsening of your condition and complications * To maintain your health at the optimal level Directions to Meet Your Goals Take your medications as prescribed Follow your dietary instruction Follow activity as directed Keep your appointments as scheduled Take your immunizations and boosters as scheduled If your symptoms worsen call your PCP, if no PCP go to Urgent Care Center or Emergency Room Smoking is Dangerous to Your Health. Avoid second hand smoke Call the 24-hour hour crisis hotline for domestic abuse at John Cesar MD Oct 08, 2016 10:36
[2016-10-08] MEDS ORDERED: OXYGENTANK NAS.CANULA (10:42)
[2016-10-08] MEDS: POTASSIUM CHLORIDE 10 MEQ CONTROLLED RELEASE TAB PO SCH (13:44)
[2016-10-08] MEDS: CARVEDILOL 3.125 MG TAB PO SCH ×2 (13:44→20:55)
[2016-10-08] MEDS: CLOPIDOGREL 75 MG TAB PO SCH (13:45)
[2016-10-08] MEDS: FUROSEMIDE 20 MG TAB PO SCH (13:45)
[2016-10-08] MEDS: ASPIRIN 81 MG CHEW TAB PO SCH (13:45)
[2016-10-08] MEDS: ATORVASTATIN 10 MG TAB PO SCH (20:55)
[2016-10-08] MEDS: SODIUM CHLORIDE 0.9% FLUSH 10 ML FLUSH IV FLUSH SCH (20:56)
[2016-10-09] VITALS (11 sets, daily range): BP systolic 103–112; BP diastolic 57; PULSE 65–80; RESP 16–18; TEMP 98–98.1; O2SAT 93–97
[2016-10-09] MEDS: CLOPIDOGREL 75 MG TAB PO SCH (08:21)
[2016-10-09] MEDS: POTASSIUM CHLORIDE 10 MEQ CONTROLLED RELEASE TAB PO SCH (08:21)
[2016-10-09] MEDS: ASPIRIN 81 MG CHEW TAB PO SCH (08:22)
[2016-10-09] MEDS: CARVEDILOL 3.125 MG TAB PO SCH (08:22)
[2016-10-09] MEDS: FUROSEMIDE 20 MG TAB PO SCH (08:22)
[2016-10-09] MEDS: LISINOPRIL 5 MG TAB PO SCH ×2 (08:22→08:28)
[2016-10-09] MEDS: SODIUM CHLORIDE 0.9% FLUSH 10 ML FLUSH IV FLUSH SCH (08:24)
--- NOTE | 2016-10-09 09:08 | HHI.PR ---
Subjective Remarks d/c held up due to no delivery of her oxygen yesterday she is eager still for d/c no events overnight. Objective Vitals heart reg lung cta abd s/nt ext no edema Vital Signs Date Time Temp Pulse Resp B/P Pulse Ox O2 Delivery O2 Flow Rate FiO2 10/09/16 09:03 67 10/09/16 08:00 69 10/09/16 07:35 73 10/09/16 07:35 98.1 73 16 112/57 97 10/09/16 06:00 70 10/09/16 05:00 80 10/09/16 04:00 65 10/09/16 03:00 98.0 71 18 103/57 93 10/09/16 03:00 68 10/09/16 02:00 67 10/09/16 01:00 66 10/09/16 00:00 68 10/08/16 23:00 69 10/08/16 23:00 97.2 70 16 89/52 97 10/08/16 22:00 74 10/08/16 21:00 76 10/08/16 20:00 74 10/08/16 19:57 94 Nasal Cannula 2.00 10/08/16 19:00 78 10/08/16 19:00 98.0 74 18 102/57 95 10/08/16 18:00 78 10/08/16 17:00 80 10/08/16 16:00 78 10/08/16 15:11 72 10/08/16 15:11 98.0 72 16 93/54 96 10/08/16 15:00 72 10/08/16 14:00 82 10/08/16 13:00 80 10/08/16 12:00 82 10/08/16 11:30 81 10/08/16 11:30 97.9 81 16 102/55 93 10/08/16 11:00 86 10/08/16 10:58 94 Nasal Cannula 2.00 10/08/16 10:00 84 10/08/16 10/08/16 10/09/16 15:00 23:00 07:00 Intake Total 640 ml 360 ml Output Total 500 ml Balance 640 ml -140 ml Intake Oral 640 ml 360 ml Output Urine Total 500 ml # Voids 3 3 # Bowel Movements 0 1 Result Diagram: 10/08/16 0506 10/08/16 0506 A/P Problem List: (1) STEMI (ST elevation myocardial infarction) Status: Acute Plan: Pt presented with stemi has ischemic cardiomyopathy and ef 20-25% I was asked to assist with d/c home by cardiology...cardiology has cleared her for d/c. her bb/shanel/statin/asa/plavix,etc have been ordered by her reclamation worker Her d/c was held up yesterday as oxygen was not delivered. It is reportedly coming today and she will go home with f/u cardiology. Problem Qualifiers (1) STEMI (ST elevation myocardial infarction): Qualified Code: I21.3 - ST elevation myocardial infarction (STEMI), unspecified artery John Cesar MD Oct 09, 2016 09:08
--- NOTE | 2016-10-24 22:05 | HHI.DS ---
Discharge Summary Admission Date Oct 06, 2016 at 09:00 Discharge Date: Oct 09, 2016 Admitting Diagnosis STEMI (1) STEMI (ST elevation myocardial infarction) Diagnosis: Principal Hospital Course Pt presented with stemi has ischemic cardiomyopathy and ef 20-25% I was asked to assist with d/c home by cardiology...cardiology has cleared her for d/c. her bb/shanel/statin/asa/plavix,etc have been ordered by her supervisor calibration Her d/c was held up yesterday as oxygen was not delivered. It is reportedly coming today and she will go home with f/u cardiology. Pt Condition on Discharge: Stable Discharge Disposition: Discharge Home Discharge Instructions DIET: Follow Instructions for: Heart Healthy Diet Additional Diet Instructions: avoid overexertion until seen by your supervisor calibration in f/u Activities you can perform: See Additionl Instruction Follow up Referrals: Appointment for Follow Up - [address] elvie delvalle PCP Follow-up - [address] jean-baptiste New Medications: Oxygen tank (Oxygen tank) 1 Ea Tank 2 LITER LJ.CANFolkstr CONTINUOUS Oxygen Concentrator Portable Gaseous 2 L/min via Nasal Cannula Continuous For 99 months HYPOXEMIA PREVENTION #2 CYLINDER Atorvastatin (Lipitor) 10 Mg Tab 10 MG PO HS cad #30 Ref 11 TAB Carvedilol (Coreg) 3.125 Mg Tab 3.125 MG PO Q12HR cad #60 Ref 3 TAB Clopidogrel (Plavix) 75 Mg Tab 75 MG PO DAILY cad #30 Ref 3 TAB Furosemide (Furosemide) 20 Mg Tab 20 MG PO DAILY cad #30 Ref 3 TAB Lisinopril (Lisinopril) 5 Mg Tab 2.5 MG PO DAILY cad #30 Ref 11 TAB Potassium Chloride ER (Klor-Con 10) 10 Meq Tab 10 MEQ PO DAILY cad #30 Ref 3 TAB ([Aspirin Chew]) 81 MG CHEW 81 MG PO DAILY TAB.CHEW Discontinued Medications: Amiodarone (Amiodarone) 200 Mg Tab 200 MG PO DAILY Regulate Heart Beat #30 Ref 0 TAB John Cesar MD Oct 24, 2016 22:05
== END 2016-10-09 11:36 | disposition home or self-care (01) | DRG 247 ==
LOC: NEPE 06:13 → HCVR 07:16 → UNDOADMOB 07:16 → NEDA 07:16 → HCVR 08:50 → OBSVTOIN 10-06 09:00 → HCIS 10-06 11:24
PROVIDERS: ADMIT Internal Medicine Cardiovascular Disease; ATTEND Hospitalist
PROC: 027034Z Dilation of Coronary Artery, One Artery with Drug-eluting Intraluminal Device, Percutaneous Approach (ICD-10-PCS; principal; 2016-10-05)
PROC: 4A023N7 Measurement of Cardiac Sampling and Pressure, Left Heart, Percutaneous Approach (ICD-10-PCS; 2016-10-05)
PROC: B2111ZZ Fluoroscopy of Multiple Coronary Arteries using Low Osmolar Contrast (ICD-10-PCS; 2016-10-05)
PROC: B2151ZZ Fluoroscopy of Left Heart using Low Osmolar Contrast (ICD-10-PCS; 2016-10-05)
DX: I21.09 ST elevation (STEMI) myocardial infarction involving other coronary artery of anterior wall (principal); I25.82 Chronic total occlusion of coronary artery; I48.0 Paroxysmal atrial fibrillation; I25.10 Atherosclerotic heart disease of native coronary artery without angina pectoris; E78.5 Hyperlipidemia, unspecified; I25.5 Ischemic cardiomyopathy; I10 Essential (primary) hypertension; Z88.5 Allergy status to narcotic agent; Z88.0 Allergy status to penicillin
CPT/HCPCS: 71010; 80048; 80061; 82310; 82435; 82550; 82552; 82565; 82947; 83735; 83880; 84132; 84295; 84484; 84520; 85002; 85025; 85027; 85610; 85730; 92941; 93005; 93306; 93458; 96374; C1769; C1874; C1887; C1893; G0378; J1644; J1940; J2060; J2250; J2270; Q9967

== ENCOUNTER 2017-01-11 15:00 | Emergency (ER) | payer MEDICARE ==
[~2017-01-11] VITALS: Ht 167.6 cm; Wt 47.0 kg
[~2017-01-11 15:00] MED LIST changes: -ALPR.25 PO; -ATEN-100 PO; +Aspirin Chew PO; +CARV3.125 PO; +FURO20TA PO; +LIPI10TA PO; +LISI-519 PO; +OXYGENTANK NAS.CANULA; -PACE200T4 PO; +PLAV75TA29 PO; +POTA-243 PO; -ZOFR4TAB3 SL
[2017-01-11 15:06] VITALS: BP 148/79; PULSE 75; RESP 18; TEMP 98.1; O2SAT 99
--- NOTE | 2017-01-11 15:13 | PD ---
HPI Chief Complaint: Cardiac Complaint Time Seen by Provider: 15:08 Travel History International Travel<30 days: No Contact w/Intl Traveler<30days: No Traveled to known affect area: No History of Present Illness HPI Patient is a 76-year-old female with a history of STEMI with 100% proximal LAD occlusion in October of this year presents emergency department for evaluation of chest discomfort. Patient states she normally walks 2 miles a day and is adamantly adhering to her medication regimen is followed by Dr. Chi. She states that after her walk ended approximately 745 this morning she felt fine and it was only 4 hours later that she beginning having chest discomfort. She discussed this with her daughter and they called 911 to be evaluated emergency department. On arrival here she states that her pain is completely resolved and has no physical complaints at this time, she denies any shortness of breath abdominal pain nausea vomiting diarrhea or back pain. She states her pain was heavy without radiation. PFSH Past Medical History Cardiovascular Problems: Yes (afib) Immunizations Current: Yes Myocardial Infarction: Yes (10/05/2016) Menopausal: Yes Past Surgical History Cardiac Surgery: Yes (1 stent) Other Surgery: Yes (lumpectomy removed ) Social History Alcohol Use: No Tobacco Use: No Substance Use: No Allergies-Medications (Allergen,Severity, Reaction): Coded Allergies: Codeine (Verified Allergy, Mild, Itching, 10/05/16) Penicillin (Verified Allergy, Mild, Itching, 10/05/16) Reported Meds & Prescriptions Reported Meds & Active Scripts Active Klor-Con 10 (Potassium Chloride) 10 Meq Tab 10 Meq PO DAILY Lisinopril 5 Mg Tab 2.5 Mg PO DAILY Furosemide 20 Mg Tab 20 Mg PO DAILY Plavix (Clopidogrel Bisulfate) 75 Mg Tab 75 Mg PO DAILY Coreg (Carvedilol) 3.125 Mg Tab 3.125 Mg PO Q12HR Lipitor (Atorvastatin Calcium) 10 Mg Tab 10 Mg PO HS [Aspirin Chew] 81 MG Chew 81 Mg PO DAILY Review of Systems Except as stated in HPI: all other systems reviewed are Neg Physical Exam Narrative GENERAL: Well-developed well-nourished no apparent distress, thin. SKIN: Focused skin assessment warm/dry. HEAD: Atraumatic. Normocephalic. EYES: Pupils equal and round. No scleral icterus. No injection or drainage. ENT: No nasal bleeding or discharge. Mucous membranes pink and moist. NECK: Trachea midline. No JVD. CARDIOVASCULAR: Regular rate and rhythm. No murmur appreciated. 2+ bilateral equal pulses in all 4 extremities. RESPIRATORY: No accessory muscle use. Clear to auscultation. Breath sounds equal bilaterally. GASTROINTESTINAL: Abdomen soft, non-tender, nondistended. Hepatic and splenic margins not palpable. MUSCULOSKELETAL: No obvious deformities. No clubbing. No cyanosis. No edema. NEUROLOGICAL: Awake and alert. No obvious cranial nerve deficits. Motor grossly within normal limits. Normal speech. PSYCHIATRIC: Appropriate mood and affect; insight and judgment normal. Data Data Last Documented VS Vital Signs Date Time Temp Pulse Resp B/P Pulse Ox O2 Delivery O2 Flow Rate FiO2 01/11/17 16:40 76 16 160/90 99 Room Air 01/11/17 15:06 98.1 Orders Electrocardiogram (01/11/17 15:08) Ckmb (Isoenzyme) Profile (01/11/17 15:08) Complete Blood Count With Diff (01/11/17 15:08) Comprehensive Metabolic Panel (01/11/17 15:08) Magnesium (Mg) (01/11/17 15:08) Prothrombin Time / Inr (Pt) (01/11/17 15:08) Act Partial Throm Time (Ptt) (01/11/17 15:08) Troponin I (01/11/17 15:08) Chest, Single Ap (01/11/17 15:08) Ecg Monitoring (01/11/17 15:08) Iv Access Insert/Monitor (01/11/17 15:08) Oximetry (01/11/17 15:08) Oxygen Administration (01/11/17 15:08) Sodium Chloride 0.9% Flush (Ns Flush) (01/11/17 15:15) CKMB (01/11/17 15:13) CKMB% (01/11/17 15:13) Electrocardiogram (01/11/17 ) Labs Laboratory Tests Test 01/11/17 15:13 White Blood Count 6.5 TH/MM3 Red Blood Count 3.74 MIL/MM3 Hemoglobin 10.0 GM/DL Hematocrit 31.1 % Mean Corpuscular Volume 83.1 FL Mean Corpuscular Hemoglobin 26.8 PG Mean Corpuscular Hemoglobin 32.3 % Concent Red Cell Distribution Width 15.7 % Platelet Count 262 TH/MM3 Mean Platelet Volume 8.9 FL Neutrophils (%) (Auto) 57.4 % Lymphocytes (%) (Auto) 23.3 % Monocytes (%) (Auto) 14.4 % Eosinophils (%) (Auto) 4.0 % Basophils (%) (Auto) 0.9 % Neutrophils # (Auto) 3.7 TH/MM3 Lymphocytes # (Auto) 1.5 TH/MM3 Monocytes # (Auto) 0.9 TH/MM3 Eosinophils # (Auto) 0.3 TH/MM3 Basophils # (Auto) 0.1 TH/MM3 CBC Comment DIFF FINAL Differential Comment Prothrombin Time 11.3 SEC Prothromb Time International 1.0 RATIO Ratio Activated Partial 24.1 SEC Thromboplast Time Sodium Level 139 MEQ/L Potassium Level 4.6 MEQ/L Chloride Level 105 MEQ/L Carbon Dioxide Level 27.2 MEQ/L Anion Gap 7 MEQ/L Blood Urea Nitrogen 16 MG/DL Creatinine 0.81 MG/DL Estimat Glomerular Filtration 69 ML/MIN Rate Random Glucose 70 MG/DL Calcium Level 8.7 MG/DL Magnesium Level 2.1 MG/DL Total Bilirubin 0.2 MG/DL Aspartate Amino Transf 24 U/L (AST/SGOT) Alanine Aminotransferase 23 U/L (ALT/SGPT) Alkaline Phosphatase 77 U/L Total Creatine Kinase 122 U/L Creatine Kinase MB 2.9 NG/ML Troponin I 0.27 NG/ML Total Protein 7.4 GM/DL Albumin 3.4 GM/DL [facility] Medical Decision Making Medical Screen Exam Complete: Yes Emergency Medical Condition: Yes Interpretation(s) Patient's initial EKG at 1502 shows sinus rhythm left axis deviation, normal R- wave progression, there is a biphasic T-wave pattern and V3 T-wave inversions in V4 through V6. Comparison to 10/06/2016 shows new T-wave inversions in V4 through V6, this comparison may be limited as this was post catheterization after her last STEMI. The patient's EKG was repeated at 1636, and shows no evolution of these changes. Differential Diagnosis ACS, AMI, and STEMI, restenosis. Narrative Course Patient was roomed in the emergency department, high index suspicion for restenosis and the patient given her EKG changes. Patient's troponin returns at 0.27, she was revisited and remains chest pain-free. She did receive an aspirin. The patient was discussed with Dr. delvalle who is on-call for Dr. Alon, recommended the patient be admitted, Dr. delvalle agrees and recommends heparinization for probable catheterization in the morning. The termination discussed with the patient and she states that she has been in the hospital before and face to her medication regimen and feels that she does not want to be admitted at this time. I had a lengthy discussion with the patient and the present of [employer] PERKINS and discussed I think this is a poor decision. I discussed at length that not only she risk of sudden cardiac but also at risk of morbidity and disability which may be permanent said she have a major cardiac event not to mention she is likely to develop congestive heart failure may be shortness of breath chronically. She verbalized understanding to all of this and would like to go home. I reiterated that I think she is making a poor decision. She thinks he very kindly from my advice and still wrist to go home. She is of sound mind and body and able to make her own medical decisions at this time. She did sign a formal AMA paper. The AMA status the patient was then discussed with Dr. delvalle and I had recommended the patient that she continue a full dose aspirin and was welcome to return to the emergency department at any time for admission at that time. Dr. delvalle agreed that the patient is making poor decision and this was conveyed to the patient however she stated that she still would like to go home. Recommended that she call Dr. Chi office tomorrow first thing. Diagnosis Primary Impression: NSTEMI (non-ST elevated myocardial infarction) Additional Impression: ACS (acute coronary syndrome) Additional Instructions: Recommend he return to the emergency department which earliest convenience for admission for likely heart attack. Would also recommend that she call your civil division commander deputy sheriff Dr. Chi first thing in the morning. Would recommend he take an aspirin 325 daily. Disposition: 01 DISCHARGE HOME Condition: Stable Dario Fontenot MD Jan 11, 2017 15:13
[2017-01-11] MEDS ORDERED: SODIUM CHLORIDE 0.9% FLUSH 10 ML FLUSH IVF PRN (15:15)
[2017-01-11 15:48] LABS: AUTOMATED NEUTROPHIL # 3.7 TH/MM3 (1.8-7.7); BASOPHIL # 0.1 TH/MM3 (0-0.2); BASOPHIL % 0.9 % (0.0-2.0); EOSINOPHIL # 0.3 TH/MM3 (0-0.4); HEMATOCRIT 31.1 % (35.0-46.0); HEMO FLAGS DIFF FINAL; LYMPH % 23.3 % (9.0-44.0); LYMPHOCYTE # 1.5 TH/MM3 (1.0-4.8); MEAN CELL VOLUME 83.1 FL (80.0-100.0); MEAN CORPUSCULAR HEMOGLOBIN 26.8 PG (27.0-34.0); MEAN CORPUSCULAR HGB CONC 32.3 % (32.0-36.0); MONO % 14.4 % (0.0-8.0); NEUT % 57.4 % (16.0-70.0); PLATELET COUNT 262 TH/MM3 (150-450); RED BLOOD COUNT 3.74 MIL/MM3 (4.00-5.30); RED CELL DISTRIBUTION WIDTH 15.7 % (11.6-17.2); WHITE BLOOD COUNT 6.5 TH/MM3 (4.0-11.0)
[2017-01-11 16:05] LABS: APTT (PATIENT) 24.1 SEC (24.3-30.1); PROTHROMBIN TIME - PATIENT 11.3 SEC (9.8-11.6)
[2017-01-11 16:12] LABS: ALKALINE PHOSPHATASE 77 U/L (45-117); ALT (GPT) 23 U/L (10-53); ANION GAP 7 MEQ/L (5-15); AST (GOT) 24 U/L (15-37); BICARBONATE 27.2 MEQ/L (21.0-32.0); BLOOD UREA NITROGEN 16 MG/DL (7-18); CHLORIDE 105 MEQ/L (98-107); CREATINE KINASE 122 U/L (26-192); GLOMERULAR FILTRATION RATE 69 ML/MIN (>89); MAGNESIUM 2.1 MG/DL (1.5-2.5); POTASSIUM 4.6 MEQ/L (3.5-5.1); SODIUM (NA) 139 MEQ/L (136-145); TOTAL BILIRUBIN ADULT 0.2 MG/DL (0.2-1.0)
--- NOTE | 2017-01-11 16:19 | EKG ---
Date Performed: 01/11/2017 Time Performed: 15:02:53 PTAGE: 76 years EKG: Sinus rhythm ANTERIOR MYOCARDIAL INFARCTION, POSSIBLY RECENT INFERIOR MYOCARDIAL INFARCTION ACUTE LA PREVIOUS TRACING : 10/06/2016 05.59 Compared to previous tracing, evolving changes of ant erior myocardial infarction are evident. DOCTOR: Eugene Chamberlain Interpretating Date/Time 01/13/2017 08:13:29
--- NOTE | 2017-01-11 16:22 | RADRPT ---
EXAM DATE/TIME: 01/11/2017 15:38 [facility] COMPARISON: CHEST SINGLE AP, October 06, 2016, 4:27. INDICATIONS : Chest pain. MEDICAL HISTORY : Myocardial infarction. SURGICAL HISTORY : None. ENCOUNTER: Initial ACUITY: 1 day PAIN SCORE: 110 LOCATION: Left chest FINDINGS: A single portable frontal view of the chest shows persistent opacification of the right apex. This is unchanged. The lungs are otherwise hyperinflated. Heart remains enlarged. No effusions. Bony structu res are unremarkable. CONCLUSION: 1. Cardiomegaly. 2. Persistent opacification of the right lung apex which is unchanged. 3. Hyperinflation suggesting COPD. Sampson Marvin Jr., MD on January 11, 2017 at 16:20 Board Certified Radiologist. This report was verified electronically.
[2017-01-11 16:27] LABS: CKMB 2.9 NG/ML (0.5-3.6)
[2017-01-11 16:40] VITALS: BP 160/90; PULSE 76; RESP 16; O2SAT 99
--- NOTE | 2017-01-11 22:33 | EKG ---
Date Performed: 01/11/2017 Time Performed: 16:36:35 PTAGE: 76 years EKG: Sinus rhythm ANTERIOR MYOCARDIAL INFARCTION INFERIOR MYOCARDIAL INFARCTION ACUTE [place] PREVIOUS TRACING : 01/11/2017 15.02 No significant change from previous tracing noted. DOCTOR: Eugene Chamberlain Interpretating Date/Time 01/11/2017 22:32:24
== END 2017-01-11 17:13 | disposition left against medical advice (07) ==
LOC: NEPE 15:00
DX: I21.4 Non-ST elevation (NSTEMI) myocardial infarction (principal); I24.9 Acute ischemic heart disease, unspecified; I48.91 Unspecified atrial fibrillation; Z79.02 Long term (current) use of antithrombotics/antiplatelets; Z79.82 Long term (current) use of aspirin; Z79.899 Other long term (current) drug therapy; Z88.5 Allergy status to narcotic agent; Z88.0 Allergy status to penicillin
CPT/HCPCS: 71010; 80053; 82550; 82552; 83735; 84484; 85025; 85610; 85730; 93005; 99285